=== PATIENT | female | born 1995 | race Hispanic/Latino ===

== ENCOUNTER 2017-05-15 20:35 | Emergency (ER) | payer MEDICAID, OTHER ==
[2017-05-15] MEDS ORDERED: IBUPROFEN 600 MG TABLET ONE (20:56)
[2017-05-15] MEDS ORDERED: CYCLOBENZAPRINE HCL 10 MG TABLET ONE (20:57)
== END 2017-05-15 21:41 | disposition home or self-care (01) ==
LOC: EDH 20:35
DX: S16.1XXA Strain of muscle, fascia and tendon at neck level, initial encounter (principal); M32.9 Systemic lupus erythematosus, unspecified; V49.49XA Driver injured in collision with other motor vehicles in traffic accident, initial encounter; Y93.89 Activity, other specified; Y92.89 Other specified places as the place of occurrence of the external cause; Y99.8 Other external cause status

== ENCOUNTER 2018-09-28 01:26 | Emergency (ER) | payer MEDICAID ==
[2018-09-28] MEDS ORDERED: SODIUM CHLORIDE 0.9% 1000ML 2,000 ML IV ONE (02:17)
[2018-09-28] MEDS ORDERED: METOCLOPRAMIDE 10 MG/2 ML VIAL ONE (02:17)
[2018-09-28] MEDS ORDERED: ONDANSETRON HCL 4 MG/2 ML VIAL ONE (02:17)
[2018-09-28 02:33] LABS: BASOPHILS % (AUTO) 0.4 % (0.0-5.0); EOSINOPHILS % (AUTO) 1.2 % (0.0-8.0); HEMATOCRIT 40.6 % (36-48); LYMPHOCYTES % (AUTO) 14.7 % (21.0-51.0); MEAN CORPUSCULAR HEMOGLOBIN 31.1 pg (27.0-33.0); MEAN CORPUSCULAR VOLUME 91.5 fL (79-99); MONOCYTES % (AUTO) 9.2 % (3.0-13.0); NEUTROPHILS % (AUTO) 74.5 % (40.0-77.0); PLATELET COUNT (AUTO) 241 K/uL (130-400); RED BLOOD CELL COUNT(AUTO) 4.44 MIL/uL (4.00-5.50); RED CELL DISTRIBUTION WIDTH 13.3 % (11.0-15.5); WHITE BLOOD COUNT (AUTO) 6.1 K/uL (4.8-10.8)
[2018-09-28 02:35] LABS: APPEARANCE,URINE Clear (CLEAR); BILIRUBIN,URINE Negative (NEGATIVE); COLOR,URINE Yellow (YELLOW); GLUCOSE, URINE (UA) Negative (NEGATIVE); KETONES,URINE Negative (NEGATIVE); LEUKOCYTE ESTERASE ,URINE Small (NEGATIVE); NITRATE,URINE Negative (NEGATIVE); OCCULT BLOOD,URINE Negative (NEGATIVE); PH,URINE 5.5 (5.0-8.0); PROTEIN,URINE POS 2+ mg/dL (NEGATIVE)
[2018-09-28 02:40] LABS: CREATININE 0.7 mg/dL (0.5-1.5); POTASSIUM 3.6 mmol/L (3.5-5.1)
[2018-09-28 02:41] LABS: HCG,QUAL RESULT NEGATIVE (NEGATIVE)
[2018-09-28 02:44] LABS: ALBUMIN 3.5 g/dL (3.5-5.0); BILIRUBIN,TOTAL 0.1 mg/dL (0.2-1.0); TOTAL PROTEIN, SERUM 8.2 g/dL (6.0-8.3)
[2018-09-28 02:54] LABS: BACTERIA,URINE Rare /HPF (None Seen); MUCUS,URINE Rare LPF (None Seen); RBC,URINE 0-1 /HPF (0-1); SQUAMOUS EPITHELIAL CELL,UR Few /HPF (0-2)
== END 2018-09-28 04:00 | disposition home or self-care (01) ==
LOC: EDH 01:26
DX: H81.10 Benign paroxysmal vertigo, unspecified ear (principal); E86.9 Volume depletion, unspecified; L93.0 Discoid lupus erythematosus
CPT/HCPCS: 36415; 80053; 81001; 81025; 82550; 85025; 96361; 96374; 96375; 99284; J2405; J2765; J7030

== ENCOUNTER 2020-03-29 12:51 | Emergency (ER) | payer MEDICARE ==
[2020-03-29 13:24] LABS: APPEARANCE,URINE SL CLOUDY (CLEAR); BILIRUBIN,URINE SMALL (NEGATIVE); COLOR,URINE YELLOW (YELLOW); GLUCOSE, URINE (UA) NEGATIVE (NEGATIVE); KETONES,URINE 5 mg/dL (NEGATIVE); LEUKOCYTE ESTERASE ,URINE MODERATE (NEGATIVE); NITRATE,URINE NEGATIVE (NEGATIVE); OCCULT BLOOD,URINE MODERATE (NEGATIVE); PROTEIN,URINE 100 mg/dL (NEGATIVE); UROBILINOGEN,URINE 0.2 mg/dL (0.2-1.0)
[2020-03-29 13:39] LABS: BACTERIA,URINE Moderate /HPF (None Seen); WBC,URINE 26-50 /HPF (0-1)
[2020-03-29] MEDS ORDERED: CEFTRIAXONE SODIUM 1 GM ONE (14:26)
[2020-03-29] MEDS ORDERED: FLUCONAZOLE 100 MG TAB ONE (14:26)
[2020-03-29] MEDS ORDERED: PHENAZOPYRIDINE HCL 200 MG TABLET ONE (14:27)
[2020-03-29] MEDS ORDERED: LIDOCAINE HCL-MPF 1% 2ML VIAL ONE (14:30)
== END 2020-03-29 14:57 | disposition home or self-care (01) ==
LOC: EDH 12:51
DX: N39.0 Urinary tract infection, site not specified (principal); B37.3 Candidiasis of vulva and vagina; Z88.0 Allergy status to penicillin; Z88.1 Allergy status to other antibiotic agents
CPT/HCPCS: 81001; 87088; 96372; 99283; J0696; J3490